=== PATIENT | male | born 1970 | race Caucasian/White ===

== ENCOUNTER 2024-10-05 22:31 | Inpatient (IN) | payer MEDICAID ==
[~2024-10-05] VITALS: Ht 167.6 cm; Wt 66.2 kg
[~2024-10-05 22:31] MED LIST: ASCO500C18 PEG; BRIM15DR8 EACHEYE; CHOL400D2 PEG; DOCU100T PO; DORZ10DR32 EACHEYE; FAMO20TA8 PEG; FERR220S9 PEG; FOLI-43 PEG; HYDR-4001 PEG; LATA2.5D14 EACHEYE; METR375C2 PO; MIDO5TAB4 MT; QUET25TA PO; SENN-362 PEG; ZINC CITRATE PEG; ZINC220C2 PEG
[2024-10-05] MEDS ORDERED: ACETAMINOPHEN 325MG TABLET PO PRN (23:30)
[2024-10-05] MEDS ORDERED: DOCUSATE SODIUM 100MG CAPSULE PO PRN (23:30)
[2024-10-05] MEDS ORDERED: IPRATROPIUM/ALBUTEROL 0.5-3(2.5)MG/3ML NEB HHN PRN (23:30)
[2024-10-05] MEDS ORDERED: ONDANSETRON HCL 4MG/2ML INJ IV PRN (23:30)
[2024-10-06 00:10] LABS: BASOPHILS % 0.5 % (0.0-2.0); EOSINOPHILS % 2.6 % (0.0-5.0); HEMATOCRIT. 25.8 % (42.0-52.0); HEMOGLOBIN. 8.7 g/dL (14.0-18.0); LYMPHOCYTES % 15.4 % (20.0-50.0); MEAN CORPUSCULAR HEMOGLOBIN 27.7 pg (28.0-32.0); MEAN CORPUSCULAR HGB CONC 33.7 g/dL (31.0-37.0); MEAN CORPUSCULAR VOLUME 82.2 fL (80.0-94.0); MONOCYTES % 9.3 % (2.0-8.0); NEUTROPHILS % 72.2 % (40.0-76.0); PLATELET 292 x1000/uL (130-400); RED BLOOD CELL COUNT 3.14 mill/uL (4.7-6.1); RED CELL DISTRIBUTION WIDTH 14.7 % (11.6-14.6); WHITE BLOOD COUNT 10.1 x1000/uL (4.5-11.0)
[2024-10-06] MEDS ORDERED: VANCOMYCIN 1GM/200ML PMX (BAXTER) IV NR (00:15)
[2024-10-06] MEDS ORDERED: PIPERACILLIN/TAZO 3.375G/50ML IV NR (00:15)
[2024-10-06 00:16] LABS: CHLORIDE 103 mEq/L (98-107); POTASSIUM 4.5 mEq/L (3.5-5.1); SODIUM 136 mEq/L (136-145)
[2024-10-06 00:17] LABS: CARBON DIOXIDE 27 mEq/L (21-32)
[2024-10-06 00:18] LABS: CALCIUM 9.3 mg/dL (8.7-10.4)
[2024-10-06 00:22] LABS: GLUCOSE 168 mg/dL (70-105); UREA NITROGEN BLOOD 58 mg/dL (9-23)
[2024-10-06 00:27] LABS: ETHANOL BLOOD < 10 mg/dL (<10)
[2024-10-06 00:50] LABS: PARTIAL THROMBOPLASTIN TIME 26.3 sec (23.4-31.0); PROTHROMBIN TIME 10.9 sec (9.6-11.0)
[2024-10-06] MEDS: VANCOMYCIN 1.5GM/250ML 250 ML IV NR (01:00)
[2024-10-06] MEDS ORDERED: VANCOMYCIN 1.25GM/250ML 250 ML IV SCH (01:45)
[2024-10-06] MEDS ORDERED: CLINDAMYCIN 300 MG in DEXTROSE 5% WATER 50 ML IV ONE (01:45)
[2024-10-06] MEDS: PIPERACILLIN/TAZO 3.375G/50ML 50 ML IV NR (02:00)
[2024-10-06] MEDS: CLINDAMYCIN 600MG PREMIX 50 ML IV NR (02:30)
[2024-10-06 07:09] LABS: CHLORIDE 105 mEq/L (98-107); POTASSIUM 4.1 mEq/L (3.5-5.1); SODIUM 139 mEq/L (136-145)
[2024-10-06 07:10] LABS: CALCIUM 9.2 mg/dL (8.7-10.4); CARBON DIOXIDE 25 mEq/L (21-32)
[2024-10-06 07:15] LABS: CREATININE 1.1 mg/dL (0.6-1.3); GLUCOSE 157 mg/dL (70-105); UREA NITROGEN BLOOD 59 mg/dL (9-23)
[2024-10-06 07:16] LABS: ALANINE AMINOTRANSFERASE 12 IU/L (10-49)
[2024-10-06 07:17] LABS: ALBUMIN 3.8 g/dL (3.2-4.8); ASPARTATE AMINOTRANSFERASE 13 IU/L (<34); BILIRUBIN TOTAL 0.2 mg/dL (0.1-1.0); PROTEIN TOTAL 7.5 g/dL (6.0-8.3)
[2024-10-06 07:19] LABS: BASOPHILS % 0.6 % (0.0-2.0); EOSINOPHILS % 1.9 % (0.0-5.0); HEMATOCRIT. 24.2 % (42.0-52.0); HEMOGLOBIN. 8.3 g/dL (14.0-18.0); LYMPHOCYTES % 22.3 % (20.0-50.0); MEAN CORPUSCULAR HEMOGLOBIN 27.9 pg (28.0-32.0); MEAN CORPUSCULAR HGB CONC 34.1 g/dL (31.0-37.0); MEAN CORPUSCULAR VOLUME 81.9 fL (80.0-94.0); MEAN PLATELET VOLUME 9.3 fl (7.4-10.4); MONOCYTES % 10.7 % (2.0-8.0); NEUTROPHILS % 64.5 % (40.0-76.0); PLATELET 246 x1000/uL (130-400); RED BLOOD CELL COUNT 2.95 mill/uL (4.7-6.1); RED CELL DISTRIBUTION WIDTH 14.8 % (11.6-14.6); WHITE BLOOD COUNT 8.9 x1000/uL (4.5-11.0)
[2024-10-06] MEDS ORDERED: PIPERACILLIN/TAZO 3.375G/50ML 50 ML IV SCH (14:00)
[2024-10-06] MEDS: VANCOMYCIN 750MG PREMIX 150 ML IV SCH ×2 (15:08→22:09)
[2024-10-06 16:00] VITALS: BP 98/58; PULSE 80; RESP 18; TEMP 36.5; O2SAT 95
[2024-10-06] MEDS: PIPERACILLIN/TAZO 3.375G/50ML 50 ML IV SCH (17:46)
[2024-10-06 18:51] VITALS: BP 95/52; PULSE 95; RESP 18; TEMP 36.6
[2024-10-06 20:00] VITALS: BP_SYST 54; PULSE 88; RESP 16; TEMP 36.4; O2SAT 99
[2024-10-06] MEDS ORDERED: VANCOMYCIN 750MG PREMIX 150 ML IV SCH (20:00)
[2024-10-07] VITALS: BP 103/58; PULSE 81; RESP 16; TEMP 36.4; O2SAT 100
[2024-10-07 04:00] VITALS: BP 106/54; PULSE 82; RESP 16; TEMP 36.2; O2SAT 99
[2024-10-07 07:42] LABS: CHLORIDE 105 mEq/L (98-107); SODIUM 138 mEq/L (136-145)
[2024-10-07 07:43] LABS: CALCIUM 9.2 mg/dL (8.7-10.4); CARBON DIOXIDE 24 mEq/L (21-32)
[2024-10-07 07:48] LABS: CREATININE 1.2 mg/dL (0.6-1.3); GLUCOSE 104 mg/dL (70-105); UREA NITROGEN BLOOD 50 mg/dL (9-23)
[2024-10-07 08:00] VITALS: BP 125/59; PULSE 85; RESP 16; TEMP 36.6; O2SAT 99
[2024-10-07 12:00] VITALS: BP 130/75; PULSE 80; RESP 16; TEMP 36.3; O2SAT 100
[2024-10-07] MEDS: MIDODRINE HCL 5MG TABLET PO SCH (13:00)
[2024-10-07] MEDS ORDERED: LIDOCAINE HCL 1% 10 MG/ML 10ML VIAL ONE (13:31)
[2024-10-07] MEDS ORDERED: BUPIVACAINE HCL/PF 0.5% (5MG/ML) 10ML ONE (13:31)
[2024-10-07] MEDS: FAMOTIDINE 20MG TABLET PEG SCH (13:32)
[2024-10-07] MEDS ORDERED: FAMOTIDINE 20MG TABLET PEG SCH (14:00)
[2024-10-07] MEDS ORDERED: FENTANYL CITRATE/PF 50MCG/ML 2ML VIAL ONE (14:17)
[2024-10-07] MEDS ORDERED: PROPOFOL 200MG/20ML VIAL IV ONE (14:17)
[2024-10-07] MEDS ORDERED: ONDANSETRON HCL 4MG/2ML INJ IV PRN (14:30)
[2024-10-07] MEDS ORDERED: POLYMYXIN B SULFATE 500000 UNITS/VIAL ONE (14:39)
[2024-10-07] MEDS ORDERED: ONDANSETRON HCL 4MG/2ML INJ ONE (14:48)
[2024-10-07] MEDS: HYDROMORPHONE HCL/PF 1MG/ML INJ IV PRN (15:50)
[2024-10-07] MEDS: BLOOD SUGAR DIAGNOSTIC STRIP TEST SCH (15:57)
[2024-10-07 16:00] VITALS: BP 116/61; PULSE 84; RESP 16; TEMP 36.6; O2SAT 99
[2024-10-07] MEDS: INSULIN LISPRO 100 UNITS/ML SUBCUT SCH (17:15)
[2024-10-07 20:00] VITALS: BP 137/43; PULSE 88; RESP 17; TEMP 36.6; O2SAT 99
[2024-10-07] MEDS: LATANOPROST 0.005% OPHTH DROPS 2.5ML EACHEYE SCH (20:40)
[2024-10-07] MEDS: DORZOLAM/TIMOLOL 2%/0.5% OPHTH DROPS 10ML EACHEYE SCH (20:40)
[2024-10-07] MEDS: BRIMONIDINE 0.2% OPHTH DROPS 5ML EACHEYE SCH (20:41)
[2024-10-07] MEDS: DEXTROSE 50% WATER 50ML SYRINGE IV PRN (20:49)
[2024-10-07] MEDS: SENNOSIDES 8.6MG TABLET PEG SCH (20:59)
[2024-10-07] MEDS: DOCUSATE SODIUM SUGAR FREE 100MG/10ML UDC PO SCH (20:59)
[2024-10-07] MEDS: QUETIAPINE FUMARATE 25MG TABLET PO SCH (21:00)
[2024-10-07] MEDS ORDERED: MEDICATION NOT ON FORMULARY EA (Docusate Sodium 100 MG) PO SCH (21:00)
[2024-10-08] VITALS: BP 132/58; PULSE 82; RESP 18; TEMP 36.7; O2SAT 98
[2024-10-08 04:00] VITALS: BP 117/40; PULSE 96; RESP 18; TEMP 36.4; O2SAT 97
[2024-10-08 08:00] VITALS: BP 110/52; PULSE 94; RESP 16; TEMP 36.8; O2SAT 98
[2024-10-08 12:00] VITALS: BP 107/53; PULSE 83; RESP 16; TEMP 37.2; O2SAT 96
[2024-10-08 12:40] LABS: CHLORIDE 105 mEq/L (98-107); SODIUM 137 mEq/L (136-145)
[2024-10-08 12:41] LABS: CARBON DIOXIDE 18 mEq/L (21-32)
[2024-10-08 12:42] LABS: CALCIUM 8.4 mg/dL (8.7-10.4)
[2024-10-08 12:46] LABS: CREATININE 1.1 mg/dL (0.6-1.3); GLUCOSE 152 mg/dL (70-105); UREA NITROGEN BLOOD 35 mg/dL (9-23)
[2024-10-08] MEDS ORDERED: NALOXONE HCL 0.4MG/ML VIAL IV PRN (13:45)
[2024-10-08] MEDS: OXYCODONE HCL/ACETAMINOPHEN 5/325MG TABLET PO PRN (14:20)
[2024-10-08 16:00] VITALS: BP 100/56; PULSE 73; RESP 16; TEMP 36.8; O2SAT 98
[2024-10-08 20:00] VITALS: BP 125/50; PULSE 72; RESP 17; TEMP 36.8; O2SAT 100
[2024-10-09] VITALS: BP 104/41; PULSE 64; RESP 18; TEMP 35.9; O2SAT 99
[2024-10-09 04:00] VITALS: BP 133/61; PULSE 74; RESP 18; TEMP 36.5; O2SAT 99
[2024-10-09] MEDS: VANCOMYCIN 750MG/150ML (BAXTER) IV SCH (05:05)
[2024-10-09 08:00] VITALS: BP 110/71; PULSE 77; RESP 16; TEMP 36.5; O2SAT 100
[2024-10-09 12:00] VITALS: BP 105/62; PULSE 71; RESP 17; TEMP 36.1; O2SAT 99
[2024-10-09 16:00] VITALS: BP 126/62; PULSE 76; RESP 18; TEMP 36.7; O2SAT 96
[2024-10-09 20:00] VITALS: BP 129/60; PULSE 79; RESP 18; TEMP 37.2; O2SAT 99
[2024-10-09] MEDS: SODIUM CHLORIDE 0.9% 1,000 ML IV SCH (22:13)
[2024-10-10] VITALS: BP 135/67; PULSE 74; RESP 18; TEMP 36.9; O2SAT 98
[2024-10-10 04:00] VITALS: BP 135/58; PULSE 75; RESP 17; TEMP 37.5; O2SAT 99
[2024-10-10 06:50] LABS: BASOPHILS % 0.9 % (0.0-2.0); EOSINOPHILS % 5.9 % (0.0-5.0); HEMATOCRIT. 22.5 % (42.0-52.0); HEMOGLOBIN. 7.5 g/dL (14.0-18.0); LYMPHOCYTES % 20.3 % (20.0-50.0); MEAN CORPUSCULAR HGB CONC 33.2 g/dL (31.0-37.0); MEAN CORPUSCULAR VOLUME 81.3 fL (80.0-94.0); MEAN PLATELET VOLUME 8.9 fl (7.4-10.4); MONOCYTES % 7.8 % (2.0-8.0); NEUTROPHILS % 65.1 % (40.0-76.0); PLATELET 291 x1000/uL (130-400); RED BLOOD CELL COUNT 2.77 mill/uL (4.7-6.1); RED CELL DISTRIBUTION WIDTH 14.9 % (11.6-14.6); WHITE BLOOD COUNT 8.1 x1000/uL (4.5-11.0)
[2024-10-10 06:52] LABS: CHLORIDE 105 mEq/L (98-107); SODIUM 139 mEq/L (136-145)
[2024-10-10 06:54] LABS: CARBON DIOXIDE 24 mEq/L (21-32)
[2024-10-10 06:55] LABS: CALCIUM 8.8 mg/dL (8.7-10.4)
[2024-10-10 06:59] LABS: GLUCOSE 103 mg/dL (70-105)
[2024-10-10 07:00] LABS: ALANINE AMINOTRANSFERASE < 7 IU/L (10-49); UREA NITROGEN BLOOD 24 mg/dL (9-23)
[2024-10-10 07:01] LABS: ALBUMIN 3.5 g/dL (3.2-4.8); ASPARTATE AMINOTRANSFERASE 11 IU/L (<34); LACTATE DEHYDROGENASE 113 IU/L (120-246)
[2024-10-10 07:02] LABS: BILIRUBIN TOTAL 0.3 mg/dL (0.1-1.0); PROTEIN TOTAL 6.9 g/dL (6.0-8.3)
[2024-10-10 08:00] VITALS: BP 136/73; PULSE 77; RESP 17; TEMP 36.6; O2SAT 98
[2024-10-10 12:00] VITALS: BP 105/50; PULSE 69; RESP 18; TEMP 36.7; O2SAT 98
[2024-10-10] MEDS: ACETAMINOPHEN 325MG TABLET PO PRN (14:02)
[2024-10-10 16:00] VITALS: BP 129/65; PULSE 71; RESP 17; TEMP 36.7; O2SAT 98
[2024-10-10] MEDS: MEROPENEM 1GM/50ML DUPLEX 50 ML IV SCH (19:32)
[2024-10-10 20:00] VITALS: BP 146/60; PULSE 74; RESP 19; TEMP 36.7; O2SAT 99
[2024-10-11] VITALS: BP 147/68; PULSE 72; RESP 19; TEMP 36.6; O2SAT 98
[2024-10-11 04:00] VITALS: BP 150/64; PULSE 78; RESP 19; TEMP 36.3; O2SAT 99
[2024-10-11 08:00] VITALS: BP 166/81; PULSE 78; RESP 17; TEMP 36.7; O2SAT 98
[2024-10-11] MEDS: VANCOMYCIN 750MG/150ML (BAXTER) IV SCH (08:55)
[2024-10-11 12:00] VITALS: BP 121/65; PULSE 72; RESP 18; TEMP 36.5; O2SAT 99
[2024-10-11 16:00] VITALS: BP 168/82; PULSE 71; RESP 17; TEMP 36.6; O2SAT 98
[2024-10-11 20:00] VITALS: BP 168/80; PULSE 76; RESP 18; TEMP 36.4; O2SAT 99
[2024-10-11] MEDS: CLONIDINE 0.1MG TABLET PO PRN (21:42)
[2024-10-12] VITALS: BP 154/75; PULSE 81; RESP 18; RESP 28; TEMP 36.4; O2SAT 97
[2024-10-12 04:00] VITALS: BP 166/73; PULSE 78; RESP 18; TEMP 36.6; O2SAT 97
[2024-10-12 06:53] LABS: CHLORIDE 109 mEq/L (98-107); POTASSIUM 3.9 mEq/L (3.5-5.1); SODIUM 143 mEq/L (136-145)
[2024-10-12 06:54] LABS: CARBON DIOXIDE 24 mEq/L (21-32)
[2024-10-12 06:55] LABS: CALCIUM 8.9 mg/dL (8.7-10.4)
[2024-10-12 06:59] LABS: CREATININE 0.7 mg/dL (0.6-1.3); GLUCOSE 75 mg/dL (70-105)
[2024-10-12 07:00] LABS: UREA NITROGEN BLOOD 10 mg/dL (9-23)
[2024-10-12 08:00] VITALS: BP 164/59; PULSE 73; RESP 19; TEMP 37.5; O2SAT 98
[2024-10-12] MEDS ORDERED: LIDOCAINE HCL 1% 10 MG/ML 10ML VIAL ONE (09:42)
[2024-10-12 11:02] VITALS: BP 150/69; PULSE 73; TEMP 98.2; O2SAT 99
[2024-10-12 12:00] VITALS: BP 115/55; PULSE 79; RESP 18; TEMP 37.2; O2SAT 97
== END 2024-10-12 17:30 | DRG 305 ==
LOC: ER 22:31 → 5WST 10-06 01:30 → 6EST 10-09
PROVIDERS: ADMIT Family Medicine Adult Medicine; ATTEND Family Medicine Adult Medicine
PROC: 0Y6M0ZF Detachment at Right Foot, Partial 5th Ray, Open Approach (ICD-10-PCS; principal; 2024-10-07)
PROC: 02HV33Z Insertion of Infusion Device into Superior Vena Cava, Percutaneous Approach (ICD-10-PCS; 2024-10-12)
PROC: B548ZZA Ultrasonography of Superior Vena Cava, Guidance (ICD-10-PCS; 2024-10-12)
PROC: B5181ZA Fluoroscopy of Superior Vena Cava using Low Osmolar Contrast, Guidance (ICD-10-PCS; 2024-10-12)
DX: E11.52 Type 2 diabetes mellitus with diabetic peripheral angiopathy with gangrene (principal); A48.0 Gas gangrene; E11.621 Type 2 diabetes mellitus with foot ulcer; T79.7XXA Traumatic subcutaneous emphysema, initial encounter; I95.9 Hypotension, unspecified; L03.115 Cellulitis of right lower limb; D64.9 Anemia, unspecified; L97.519 Non-pressure chronic ulcer of other part of right foot with unspecified severity; B95.2 Enterococcus as the cause of diseases classified elsewhere; I10 Essential (primary) hypertension; E78.5 Hyperlipidemia, unspecified; X58.XXXA Exposure to other specified factors, initial encounter; Z86.73 Personal history of transient ischemic attack (TIA), and cerebral infarction without residual deficits; Z88.8 Allergy status to other drugs, medicaments and biological substances; Z79.4 Long term (current) use of insulin; Z79.899 Other long term (current) drug therapy; Y93.89 Activity, other specified; Y92.89 Other specified places as the place of occurrence of the external cause; Y99.8 Other external cause status
CPT/HCPCS: 36415; 36573; 71045; 73630; 80048; 80053; 80202; 80320; 82962; 83036; 83605; 83615; 84145; 85025; 87070; 87075; 87077; 87186; 88304; 88311; 93005; 93306; 93923; 93970; 97162; 99285; A4606; C1725; J0665; J1171; J2003; J2185; J2405; J2543; J2704; J3010; J3370; J3490; J7030; G0480